=== PATIENT | female | born 1995 | race Asian ===

== ENCOUNTER 2023-05-24 01:07 | Emergency (ER) | payer SELFPAY ==
[~2023-05-24] VITALS: Ht 167.6 cm; Wt 61.2 kg
[2023-05-24] MEDS ORDERED: CLINDAMYCIN HCL 150 MG CAPSULE ONE ×2 (02:20→02:26)
[2023-05-24] MEDS ORDERED: LIDOCAINE HCL/MPF 1% 30 ML VIAL IJ ONE (02:29)
[2023-05-24] MEDS ORDERED: CLINDAMYCIN HCL 150 MG CAPSULE PO ONE (02:30)
[2023-05-24] MEDS ORDERED: LIDOCAINE HCL/PF 1% 30 ML VIAL IM ONE (02:30)
[2023-05-24] MEDS ORDERED: TDAP [DIPH/PERTUSSIS/TET] 0.5 ML VIAL IM ONE ×2 (03:00→03:08)
[2023-05-24] MEDS ORDERED: CEPH500C2 PO (03:18)
[2023-05-24] MEDS ORDERED: BENZOIN COMPOUND TINCT 60 ML BOTTLE ONE (03:22)
[2023-05-24 03:38] VITALS: BP 129/74; TEMP 98.3; O2SAT 98
== END 2023-05-24 03:39 | disposition home or self-care (01) ==
LOC: ER 01:15
DX: S01.412A Laceration without foreign body of left cheek and temporomandibular area, initial encounter (principal); W54.0XXA Bitten by dog, initial encounter; Y93.89 Activity, other specified; Y92.89 Other specified places as the place of occurrence of the external cause; Y99.8 Other external cause status
CPT/HCPCS: 12013; 90471; 90715; 99283; J3490

== ENCOUNTER 2024-09-09 11:26 | Emergency (ER) | payer MEDICAID ==
[~2024-09-09] VITALS: Ht 167.6 cm; Wt 63.5 kg
[~2024-09-09 11:26] MED LIST: CEPH500C2 PO
[2024-09-09] MEDS: HYDROCODONE/APAP 5/325MG TABLET PO ONE (13:00)
[2024-09-09] MEDS: IBUPROFEN 600 MG TABLET PO ONE (13:00)
[2024-09-09] MEDS: RABIES VACCINE (PCEC)/PF 1 EA KIT IM ONE (13:05)
[2024-09-09] MEDS ORDERED: HYDROCODONE/APAP 5/325MG TABLET ONE (13:07)
[2024-09-09] MEDS ORDERED: IBUPROFEN 600 MG TABLET ONE (13:07)
[2024-09-09] MEDS ORDERED: TDAP [DIPH/PERTUSSIS/TET] 0.5 ML VIAL IM ONE (13:08)
[2024-09-09] MEDS ORDERED: RABIES VACCINE (PCEC)/PF 1 EA KIT IM ONE (13:08)
[2024-09-09] MEDS: TDAP [DIPH/PERTUSSIS/TET] 0.5 ML VIAL IM ONE (13:10)
[2024-09-09] MEDS: RABIES IMMUNE GLOBULIN/PF 150 UNIT/ML VIAL IM ONE (13:15)
[2024-09-09] MEDS ORDERED: LIDOCAINE HCL/MPF 1% 30 ML VIAL IJ ONE (13:45)
[2024-09-09] MEDS ORDERED: KETO10TA2 PO (14:14)
[2024-09-09] MEDS ORDERED: AMOX-430 PO (14:14)
[2024-09-09] MEDS ORDERED: HYDR-4209 PO (14:14)
[2024-09-09 14:44] VITALS: BP 141/81; TEMP 98.3; O2SAT 99
== END 2024-09-09 14:45 | disposition home or self-care (01) ==
LOC: ER 11:32
DX: S61.412A Laceration without foreign body of left hand, initial encounter (principal); Z79.899 Other long term (current) drug therapy; W54.0XXA Bitten by dog, initial encounter; Y93.01 Activity, walking, marching and hiking; Y92.89 Other specified places as the place of occurrence of the external cause; Y99.8 Other external cause status
CPT/HCPCS: 12001; 73130; 90375; 90471; 90472; 90675; 90715; 99285; J3490

== ENCOUNTER 2024-09-12 12:05 | Emergency (ER) | payer MEDICAID ==
[~2024-09-12] VITALS: Ht 167.6 cm; Wt 63.5 kg
[~2024-09-12 12:05] MED LIST changes: +AMOX-430 PO; +HYDR-4209 PO; +KETO10TA2 PO
[2024-09-12 12:10] VITALS: BP 110/66; TEMP 98
[2024-09-12] MEDS ORDERED: RABIES VACCINE (PCEC)/PF 1 EA KIT IM ONE (12:17)
[2024-09-12] MEDS: RABIES VACCINE (PCEC)/PF 1 EA KIT IM ONE (12:29)
[2024-09-12 12:37] VITALS: O2SAT 98
== END 2024-09-12 12:37 | disposition home or self-care (01) ==
LOC: ER 12:05
DX: S61.412D Laceration without foreign body of left hand, subsequent encounter (principal); Z20.3 Contact with and (suspected) exposure to rabies; Z23 Encounter for immunization; W54.0XXD Bitten by dog, subsequent encounter

== ENCOUNTER 2024-09-16 13:56 | Emergency (ER) | payer MEDICAID ==
[~2024-09-16] VITALS: Ht 167.6 cm; Wt 63.5 kg
[2024-09-16 14:03] VITALS: BP 124/76; TEMP 97.9
[2024-09-16] MEDS ORDERED: CEPH-570 PO (15:03)
[2024-09-16] MEDS ORDERED: SULF1TAB48 PO (15:03)
[2024-09-16] MEDS ORDERED: RABIES VACCINE (PCEC)/PF 1 EA KIT IM ONE (15:23)
[2024-09-16] MEDS: RABIES VACCINE (PCEC)/PF 1 EA KIT IM ONE (15:34)
[2024-09-16 15:52] VITALS: O2SAT 100
== END 2024-09-16 15:40 | disposition home or self-care (01) ==
LOC: ER 14:00
DX: S61.412D Laceration without foreign body of left hand, subsequent encounter (principal); Z48.02 Encounter for removal of sutures; Z23 Encounter for immunization; Z79.899 Other long term (current) drug therapy; W54.0XXD Bitten by dog, subsequent encounter
CPT/HCPCS: 99283; 90675; 90471; A6403

== ENCOUNTER 2024-09-22 11:38 | Emergency (ER) | payer MEDICAID ==
[~2024-09-22] VITALS: Ht 167.6 cm; Wt 63.5 kg
[~2024-09-22 11:38] MED LIST changes: +SULF1TAB48 PO
[2024-09-22 11:41] VITALS: BP 135/75; TEMP 98.3
[2024-09-22] MEDS ORDERED: RABIES VACCINE (PCEC)/PF 1 EA KIT IM ONE (12:02)
[2024-09-22] MEDS: RABIES VACCINE (PCEC)/PF 1 EA KIT IM ONE (12:11)
[2024-09-22 12:13] VITALS: O2SAT 99
== END 2024-09-22 12:13 | disposition home or self-care (01) ==
LOC: ER 11:46
DX: S61.432D Puncture wound without foreign body of left hand, subsequent encounter (principal); Z23 Encounter for immunization; W54.0XXD Bitten by dog, subsequent encounter

== ENCOUNTER 2024-09-29 11:02 | Emergency (ER) | payer MEDICAID ==
[~2024-09-29] VITALS: Ht 167.6 cm; Wt 63.5 kg
[2024-09-29 11:38] VITALS: BP 126/83; TEMP 98.3
[2024-09-29 11:55] VITALS: O2SAT 98
== END 2024-09-29 11:55 | disposition home or self-care (01) ==
LOC: ER 11:12
DX: S61.452D Open bite of left hand, subsequent encounter (principal); W54.0XXD Bitten by dog, subsequent encounter